=== PATIENT | female | born 1985 ===

== ENCOUNTER 2021-06-01 16:45 | Outpatient (RCR) | payer OTHER, SELFPAY | END 2021-06-07 23:59 | disposition home or self-care (01) | LOC: MPT 16:45 | PROVIDERS: Referring Provider Midwife; Visit Provider Midwife | DX: M62.89 Other specified disorders of muscle (principal) | CPT/HCPCS: 97110; 97140; 97161; 97530 ==

== ENCOUNTER 2021-09-08 06:00 | Outpatient (RCR) | payer OTHER, SELFPAY | END 2021-10-05 23:59 | disposition home or self-care (01) | LOC: MPT 06:00 | PROVIDERS: Referring Provider Midwife; Visit Provider Midwife | DX: M62.89 Other specified disorders of muscle (principal) | CPT/HCPCS: 97110; 97140; 97530 ==